=== PATIENT | male | born 1955 | race Caucasian/White ===

== ENCOUNTER 2016-12-27 09:45 | Day surgery (SDC) | payer OTHER ==
[2016-12-27 10:21] LABS: *BILIRUBIN,URIN NEGATIVE (NEGATIVE); *BLOOD, URINE NEGATIVE (NEGATIVE); *CLARITY,URINE CLEAR (CLEAR); *COLOR,URINE YELLOW (YELLOW); *KETONES,URINE NEGATIVE (NEGATIVE); *PROTEIN,URINE NEGATIVE (NEGATIVE); *UROBILINOGEN,URINE 0.2 E.U./dl (NORMAL); LEUKOCYTE ESTERASE ,URINE NEGATIVE (NEGATIVE); NITRITE, URINE NEGATIVE (NEGATIVE); UGLUCOSE NEGATIVE (NEGATIVE)
[2016-12-27 10:37] LABS: BACTERIA,URINE NONE SEEN /HPF (NONE SEEN); MUCUS,URINE FEW /LPF (0-FEW); RBC,URINE 0-3 /HPF (0-3); SQUAMOUS EPITHELIAL CELL,UR FEW /HPF (NONE SEEN); WBC,URINE 0-3 /HPF (0-3)
[2016-12-27] MEDS ORDERED: DEXAMETHASONE SOD PHOSPHATE 4 MG INJ IV ONE (11:00)
[2016-12-27] MEDS ORDERED: IV LACTATED RINGERS SOLUTION 1,000 ML BAG MC ONE (11:00)
[2016-12-27] MEDS ORDERED: PROPOFOL 200 MG/20 ML BOTTLE IV ONE (11:00)
[2016-12-27] MEDS ORDERED: CEFAZOLIN 1 G VIAL MC ONE (11:00)
[2016-12-27] MEDS ORDERED: ONDANSETRON 4 MG/2 ML VIAL IV ONE (11:00)
[2016-12-27] MEDS ORDERED: LIDOCAINE-MPF 2% 5 ML VIAL MC ONE (11:00)
[2016-12-27] MEDS ORDERED: ESMOLOL HCL 100 MG/10 ML VIAL IV ONE (11:00)
[2016-12-27] MEDS ORDERED: BUPIVACAINE/EPI PF 0.25% 30 ML VIAL ONE (11:42)
[2016-12-27] MEDS ORDERED: MORPHINE SULFATE PF 10 MG/10 ML AMPUL IV ONE (11:42)
[2016-12-27] MEDS ORDERED: HYDROCODONE/APAP 5-325MG TABLET ONE (13:44)
== END 2016-12-27 14:00 | disposition home or self-care (01) ==
LOC: DS 09:45
PROVIDERS: ATTEND Orthopaedic Surgery
DX: M23.221 Derangement of posterior horn of medial meniscus due to old tear or injury, right knee (principal); S83.91XA Sprain of unspecified site of right knee, initial encounter; X58.XXXA Exposure to other specified factors, initial encounter; Y93.9 Activity, unspecified; Y92.89 Other specified places as the place of occurrence of the external cause; Y99.9 Unspecified external cause status; E78.00 Pure hypercholesterolemia, unspecified
CPT/HCPCS: 36415; 84132; A4663; J0690; J1100; J2274; J2405; J3490; J7120

== ENCOUNTER 2018-09-26 08:19 | Day surgery (SDC) | payer BC ==
[2018-09-26] MEDS ORDERED: IRR NORMAL SALINE IRRIGATION 4000 ML BOTTLE IR ONE (08:20)
[2018-09-26] MEDS ORDERED: PROPOFOL 200 MG/20 ML BOTTLE IV ONE (08:20)
[2018-09-26] MEDS ORDERED: SEVOFLURANE 250 ML BOTTLE IH ONE (08:20)
[2018-09-26] MEDS ORDERED: IV LACTATED RINGERS SOLUTION 1,000 ML BAG IV ONE (08:20)
[2018-09-26] MEDS ORDERED: CEFAZOLIN 1 G VIAL MC ONE (08:20)
[2018-09-26] MEDS ORDERED: ONDANSETRON 4 MG/2 ML VIAL IV ONE (08:20)
[2018-09-26] MEDS ORDERED: BUPIVACAINE 0.25% 30 ML VIAL ONE (10:07)
[2018-09-26] MEDS ORDERED: BUPIVACAINE/EPI PF 0.25% 30 ML VIAL ONE (10:07)
[2018-09-26] MEDS ORDERED: MORPHINE SULFATE PF 10 MG/10 ML AMPUL IV ONE ×2 (10:08→10:55)
[2018-09-26] MEDS ORDERED: METOCLOPRAMIDE HCL 10 MG/2 ML VIAL ONE (10:25)
[2018-09-26] MEDS ORDERED: FENTANYL CITRATE 100 MCG/2 ML AMPUL ONE ×2 (10:25→12:17)
[2018-09-26] MEDS ORDERED: MIDAZOLAM HCL 2 MG/2 ML VIAL ONE (10:25)
== END 2018-09-26 13:54 | disposition home or self-care (01) ==
LOC: DS 08:19
PROVIDERS: ATTEND Orthopaedic Surgery
DX: M23.222 Derangement of posterior horn of medial meniscus due to old tear or injury, left knee (principal); Z98.890 Other specified postprocedural states; Z79.899 Other long term (current) drug therapy; Z68.30 Body mass index [BMI] 30.0-30.9, adult; Z88.2 Allergy status to sulfonamides; E78.5 Hyperlipidemia, unspecified; K21.9 Gastro-esophageal reflux disease without esophagitis; I10 Essential (primary) hypertension
CPT/HCPCS: 29881; 71045; J0690; J2250; J2274; J2405; J2765; J3010 ×2; J3490; J7120 ×2; A4217; A4663